=== PATIENT | male | born 1980 | race Caucasian/White ===

== ENCOUNTER 2021-07-04 16:30 | Outpatient (REF) | payer OTHER, SELFPAY ==
[2021-07-04 17:23] LABS: Rheumatoid Factor < 15.0 IU/mL (<15.0); Uric Acid 5.1 mg/dL (3.4-7.0)
[2021-07-04 18:03] LABS: Erythrocyte Sedimentation Rate 2 MM/HR (0-15)
[2021-07-06 05:11] LABS: Lyme Abs Screen <0.90 index
== END 2021-07-04 16:31 | disposition home or self-care (01) ==
LOC: HO.LAB 16:30
PROVIDERS: PCP Internal Medicine; Visit Provider Psychiatry & Neurology Neurology
DX: G43.909 Migraine, unspecified, not intractable, without status migrainosus (principal)
CPT/HCPCS: 36415; 84550; 85652; 86431; 86617; 86618

== ENCOUNTER 2023-01-22 14:55 | Outpatient (REF) | payer BC, SELFPAY ==
--- NOTE | ~2023-01-22 | MR_ITS ---
EXAMINATION: MR CERVICAL SPINE WITHOUT CONTRAST CLINICAL INFORMATION: Cervical radiculopathy. COMPARISON: No relevant prior imaging. TECHNIQUE: MRI of the cervical spine was obtained using routine sequences without contrast. FINDINGS: Alignment is normal. Vertebral heights are preserved. No acute bone marrow signal changes. There is slight loss of intervertebral disc height and T2 signal intensity at multiple levels related to disc degeneration. There is no canal compromise or cord compression. No abnormal intramedullary signal changes. The cervicomedullary junction is normal. Limited visualization of the posterior fossa reveals no abnormal finding. The occipital condyles and lateral C1 masses are intact. The atlantodental joint and both C1-C2 articular facets are unremarkable. At C2-C3 there is a slightly bulging disc. No canal stenosis. Asymmetric uncovertebral joint spurring causes mild right neuroforaminal encroachment. At C3-C4 there is a bulging disc. Mild canal stenosis. Uncovertebral joint spurring and facet degenerative change causes moderate bilateral neuroforaminal encroachment. At C4-C5 there is a slightly bulging disc. No canal stenosis. Uncovertebral joint spurring and facet degenerative change causes moderate bilateral neuroforaminal encroachment. At C5-C6 there is a slightly bulging disc. No canal stenosis. Uncovertebral joint spurring and facet degenerative change causes moderate left and mild right neuroforaminal encroachment. At C6-C7 there is a right foraminal soft disc protrusion superimposed upon a bulging disc causing mild canal stenosis. Severe bilateral neuroforaminal encroachment. At C7-T1 annular contour is normal. Bilateral facet degenerative change. No canal stenosis. No neuroforaminal encroachment. Visualized soft tissues of neck are normal. Vascular flow voids are grossly maintained. MR/MR cervical spine wo con IMPRESSION: There is multilevel degenerative spondylosis of the cervical spine. Mild canal stenosis at C3-C4 and C6-C7. Otherwise no canal compromise. No cord compression or abnormal intramedullary signal changes. There are varying degrees of neuroforaminal encroachment related to uncovertebral joint spurring and facet degenerative change as described above. There is also a right foraminal soft disc protrusion at C6-C7 causing severe right neuroforaminal encroachment.
== END 2023-01-22 14:56 | disposition home or self-care (01) ==
LOC: HO.MRI 14:55
PROVIDERS: PCP Internal Medicine; Visit Provider Psychiatry & Neurology Neurology
DX: M54.12 Radiculopathy, cervical region (principal)
CPT/HCPCS: 72141

== ENCOUNTER 2023-02-04 16:22 | Outpatient (REF) | payer BC, SELFPAY ==
--- NOTE | ~2023-02-04 | XR_ITS ---
EXAMINATION: XR SHOULDER, RIGHT CLINICAL INFORMATION: Cervical radiculitis. COMPARISON: None available. TECHNIQUE: AP external rotation, Grashey, scapular Y, and axillary views of the right shoulder. FINDINGS: The bones and soft tissues are normal. No fracture. Glenohumeral and acromioclavicular alignment is anatomic with normal joint space. No abnormal soft tissue calcifications. XR/XR shoulder RT min 2V IMPRESSION: Normal right shoulder.
== END 2023-02-04 16:23 | disposition home or self-care (01) ==
LOC: HO.XRAY 16:22
PROVIDERS: PCP Internal Medicine; Visit Provider Psychiatry & Neurology Neurology
DX: M54.12 Radiculopathy, cervical region (principal)
CPT/HCPCS: 73030

== ENCOUNTER 2025-08-30 14:44 | Outpatient (REF) | payer OTHER, SELFPAY ==
--- NOTE | ~2025-08-30 | XR_ITS ---
EXAMINATION: XR HAND, RIGHT CLINICAL INFORMATION: M79.641 - Pain in right hand COMPARISON: None available. TECHNIQUE: PA, lateral, and oblique views of the right hand. FINDINGS: No visible acute fracture or dislocation.. Alignment is anatomic. Mild first MCP joint space narrowing and osteophytes. No significant joint space narrowing otherwise seen. No erosions or soft tissue calcifications. XR/XR hand RT min 3V IMPRESSION: Mild first MCP arthritis. Electronically signed by: Steve Prince MD 08/31/2025 12:56 PM EST
== END 2025-08-30 14:45 | disposition home or self-care (01) ==
LOC: HO.XRAY 14:44
PROVIDERS: PCP Internal Medicine; Referring Provider Internal Medicine; Visit Provider Psychiatry & Neurology Neurology
DX: M79.641 Pain in right hand (principal); M79.7 Fibromyalgia; G43.009 Migraine without aura, not intractable, without status migrainosus; M54.12 Radiculopathy, cervical region
CPT/HCPCS: 73130

== ENCOUNTER 2025-08-30 14:44 | Outpatient (AMB) | payer OTHER, SELFPAY ==
--- NOTE | 2025-08-30 15:05 | MHC.OFFVIS ---
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 He is presenting for a follow-up visit to address persistent right hand pain. He reports worsening throbbing pain in his right hand, specifically in two joints, which has become quite painful. He notes swelling in the hand and an inability to close it completely at times. 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 Previous treatments with Celebrex and meloxicam (Mobic) were ineffective for the pain. He manages symptoms at night with ice, heat, and topical agents. He has never had an x-ray of his hand. The patient's current medications include duloxetine 60 mg, which he switched to taking in the mornings and reports it works well. He also takes Zyrtec 10 mg in the morning for sinus and allergy symptoms. He reports his sleep is good. Review of Systems Narrative - Musculoskeletal: Reports throbbing pain, swelling, and decreased range of motion in the right hand. - Allergic/Immunologic: Reports taking Zyrtec for sinus and allergy issues. - Constitutional: Reports good sleep. - He states that other than his hand pain, he is doing pretty good. Physical Exam Neuro Other: Mental Status: Alert and oriented to person, place, and time. Normal attention. Normal spontaneous speech, fluency, and comprehension. No obvious issues with mood and memory. Affect is appropriate. Cranial Nerves: CN II: Visual richardson full to confrontation, visual acuity intact. CN III, IV, : Pupils equal, round, reactive to light and accommodation. Extraocular movements are normal. CN V: Facial sensation is normal. CN VII: Facial movements symmetrical. CN VIII: Hearing intact to bedside conversation is normal. CN IX, X: Palate elevates symmetrically. CN XI: Shoulder shrug and head turn symmetrical. CN XII: Tongue midline without atrophy or fasciculations. Extrapyramidal: Full facial expressions and blinking. No rigidity. Movements are appropriate with no tremor or abnormality. Speech: Normal; no dysarthria or tremor. Assessment & Plan Assessment & Plan (1) Fibromyalgia: Comment: XR R shoulder at [facility] [place] in Jan 2023: OK NCV/EMG RTUE Mild right ulnar neuropathy across the Cubital tunnel. Mild right median neuropathy across the Carpal tunnel. MRI C spine WO at [facility] [place] in Jan 2023: diff DJD, mild spondylosis, but at C6/7 there is b/l foraminal stenosis. Code(s): M79.7 - Fibromyalgia Category: Medical (2) Migraine: Code(s): G43.909 - Migraine, unspecified, not intractable, without status migrainosus Category: Medical Qualifiers: Migraine type: migraine (< 15 days per month) without aura Status migrainosus presence: without status migrainosus Intractability: not intractable Qualified Code(s): G43.009 - Migraine without aura, not intractable, without status migrainosus (3) Cervical radiculitis: Code(s): M54.12 - Radiculopathy, cervical region Category: Medical (4) Hand pain, right: Code(s): M79.641 - Pain in right hand Category: Medical Plan I explained to the patient that his right hand symptoms are musculoskeletal in nature, not neurological. Due to the occupational nature of his symptoms and failure of prior oral medications, I recommended he see a hand specialist. We will start with an x-ray of his hand and proceed with the referral. I instructed him to contact our office if he does not hear from the specialist's office to schedule an appointment. For interim symptomatic relief, I advised him on purchasing an [id number] compression half-glove which could provide comfort and rest the tendons, especially after work. I will handle the refill for his duloxetine when the request is sent by the pharmacy. We will plan for a follow-up in six months. Orders: Orders XR hand RT 2V Today M79.641 - Pain in right hand Referrals Hand Surgery Referral M79.641 - Pain in right hand Medications: Refilled duloxetine 60 mg PO DAILY 90 caps 1RF Coding Level of Care Code Est Pt Level 4 (90676) Diagnoses Fibromyalgia M79.7 Migraine without aura and without status migrainosus, not intractable G43.009 Migraine type: migraine (< 15 days per month) without aura Status migrainosus presence: without status migrainosus Intractability: not intractable Cervical radiculitis M54.12 Hand pain, right M79.641
--- OUTSIDE RECORDS SUMMARY | 2025-08-31 03:18 | XMS_ITS ---
Author Name [facility] Organization Unknown Care Team Organization Name Specialty Phone Email Start Date End Da te [facility] 10/20/2022 4 [facility] 08/19/2022 4
== END 2025-08-30 15:18 | disposition home or self-care (01) ==
LOC: HO.HSM 14:44
PROVIDERS: PCP Internal Medicine; Referring Provider Internal Medicine; Visit Provider Psychiatry & Neurology Neurology
DX: M79.7 Fibromyalgia (principal); G43.009 Migraine without aura, not intractable, without status migrainosus; M54.12 Radiculopathy, cervical region; M79.641 Pain in right hand
CPT/HCPCS: 99214

== ENCOUNTER → 2025-08-30 15:25 | Outpatient (BNV) | payer OTHER, SELFPAY | PROVIDERS: PCP Internal Medicine; Referring Provider Internal Medicine; Visit Provider Radiology Diagnostic Ultrasound | DX: M79.641 Pain in right hand (principal) | CPT/HCPCS: 73130 ==